=== PATIENT | female | born 1965 | race Caucasian/White ===

== ENCOUNTER 2020-12-28 14:35 | Emergency (ER) | payer OTHER ==
[~2020-12-28] VITALS: Ht 160 cm; Wt 85.0 kg
[2020-12-28 15:08] VITALS: BP 106/70
--- NOTE | 2020-12-28 15:33 | PHYS DOC ---
Past History Past Surgical History: Cholecystectomy, Hysterectomy, Other Additional Past Surgical Histo: knee and back General Adult EDM: Chief Complaint: MECHANICAL FALL HPI: HPI: 55-year-old female presents after mechanical fall. 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 This caused her to fall backwards she landed on her buttocks and then hit the back of her head on concrete. She was not knocked unconscious. She does feel a bit dazed and mildly nauseated. She has not had vomiting. She feels like she is "a little bit out of it". She also has an aching sensation at the top of her buttocks over her sacrum. She doubts that she broke it but it is painful. Patient is not any blood thinners or aspirin. She does not drink alcohol. She has no blood clotting disorders. She denies any other injuries or complaints at this time. Review of Systems: Review of Systems: Constitutional: Denies fever or chills Eyes: Denies change in visual acuity HENT: Denies nasal congestion or sore throat Respiratory: Denies cough or shortness of breath Cardiovascular: Denies chest pain or edema GI: Denies abdominal pain, nausea, vomiting, bloody stools or diarrhea : Denies dysuria Musculoskeletal: Denies back pain or joint pain Integument: Denies rash Neurologic: Denies headache, focal weakness or sensory changes Endocrine: Denies polyuria or polydipsia Lymphatic: Denies swollen glands Psychiatric: Denies depression or anxiety Physical Exam: PE: Constitutional: Well developed, well nourished, no acute distress, non-toxic appearance. [] HENT: Normocephalic, atraumatic, bilateral external ears normal, oropharynx moist, no oral exudates, nose normal. [] Eyes: PERRLA, EOMI, conjunctiva normal, no discharge. [] Neck: Normal range of motion, no tenderness, supple, no stridor. [] Cardiovascular:Heart rate regular rhythm, no murmur [] Lungs & Thorax: Bilateral breath sounds clear to auscultation [] Abdomen: Bowel sounds normal, soft, no tenderness, no masses, no pulsatile masses. [] Skin: Warm, dry, no erythema, no rash. [] Back: No tenderness, no CVA tenderness. [] Extremities: No tenderness, no cyanosis, no clubbing, ROM intact, no edema. [] Neurologic: Alert and oriented X 3, normal motor function, normal sensory function, no focal deficits noted. [] Psychologic: Affect normal, judgement normal, mood normal. [] Current Patient Data: Vital Signs: Vital Signs Date Time Temp Pulse Resp B/P (MAP) Pulse Ox O2 Delivery O2 Flow Rate FiO2 12/28/20 15:08 98.0 80 16 106/70 (82) 99 Room Air EKG: EKG: [] Radiology/Procedures: Radiology/Procedures: [] Impressions: Exam Date: 12/28/2020 3:[address] HEAD/BRAIN WO Indication: Reason: fall from step onto concrete / Spl. Instructions: / History: . TECHNIQUE: Head CT was performed without intravenous contrast. One or more of the following dose reduction techniques were utilized: *Automated exposure control (AEC) *Adjustment of mA and/or kV according to patient size *Use of iterative reconstruction technique *CT scan done according to ALARA, or VINNIE/IMAGE GENTLY FINDINGS: The ventricles and sulci are normal for the patient's stated age. There is no evidence of acute intracranial hemorrhage, extra-axial collection, mass effect, midline shift, or acute territorial infarct. No lesion of the skull base or the calvarium is seen. The visualized paranasal sinuses, mastoid air cells and orbit s are normal in appearance. IMPRESSION: No evidence for acute intracranial abnormality. Electronically signed by: Tolu Reddy MD (12/28/2020 4:12 PM) [facility] DI[facility]ATED AND SIGNED BY: TOLU REDDY MD DATE: 12/28/20 1611 CC: MINNA SMITH DO; NON,STAFF ~MTH0 0 XR SACRUM AND COCCYX 2+VIEWS 12/28/2020 3:49 PM INDICATION: Fall COMPARISON: None available. TECHNIQUE: 3 views of the sacrum and coccyx. FINDINGS/ IMPRESSION: There is no acute fracture or dislocation. Joint spaces are maintained. Bone mineralization is within normal limits. Regional soft tissues are within normal limits. There is no soft tissue gas or osseous erosion. No radiopaque foreign body. Moderate lumbar spondylosis. Electronically signed by: Mechelle Smith MD (12/28/2020 4:13 PM) [facility] DICTATED AND SIGNED BY: MECHELLE SMITH MD DATE: 12/28/20 1612 CC: MINNA SMITH DO; NON,STAFF ~MTH0 0 Heart Score: C/O Chest Pain: N/A Risk Factors: Risk Factors: DM, Current or recent (<one month) smoker, HTN, HLP, family history of CAD, obesity. Risk Scores: Score 0 - 3: 2.5% MACE over next 6 weeks - Discharge Home Score 4 - 6: 20.3% MACE over next 6 weeks - Admit for Clinical Observation Score 7 - 10: 72.7% MACE over next 6 weeks - Early Invasive Strategies Course & Med Decision Making: Course & Med Decision Making Pertinent Labs and Imaging studies reviewed. (See chart for details) The patient's head CT is negative for acute findings. Her sacrum x-ray is negative for acute findings. The patient may have a mild concussion. I have discussed this with her and told her that it would just take time to see how she does. She states verbal understanding. She is stable for discharge at this time. [] Dragon Disclaimer: Dragtayler Disclaimer: This electronic medical record was generated, in whole or in part, using a voice recognition dictation system. Departure Departure: Impression: Primary Impression: Fall from stairs Additional Impression: Concussion Qualified Codes: S06.0X0A - Concussion without loss of consciousness, initial encounter Disposition: HOME / SELF CARE / HOMELESS Condition: STABLE Referrals: NON,STAFF (PCP) Patient Instructions: Concussion and Brain Injury, [id number] MINNA SMITH DO Dec 28, 2020 15:33
[2020-12-28] MEDS ORDERED: ONDANSETRON ODT 4 MG TAB.RAPDIS PO ONE (16:00)
--- NOTE | 2020-12-28 16:14 | RAD ---
Exam Date: 12/28/2020 3:[address] HEAD/BRAIN WO Indication: Reason: fall from step onto concrete / Spl. Instructions: / History: . TECHNIQUE: Head CT was performed without intravenous contrast. One or more of the following dose re duction techniques were utilized: *Automated exposure control (AEC) *Adjustment of mA and/or kV according to patient size *Use of iterative reconstruction technique *CT scan done according to ALARA, or ALARA/IMAGE GENTLY FINDINGS: The ventricles and sulci are normal for the patient's stated age. There is no evidence of acute int racranial hemorrhage, extra-axial collection, mass effect, midline shift, or acute territorial infarc t. No lesion of the skull base or the calvarium is seen. The visualized paranasal sinuses, mastoid ai r cells and orbits are normal in appearance. IMPRESSION: No evidence for acute intracranial abnormality. Electronically signed by: Bar Reddy MD (12/28/2020 4:12 PM) [facility]
--- NOTE | 2020-12-28 16:15 | RAD ---
XR SACRUM AND COCCYX 2+VIEWS 12/28/2020 3:49 PM INDICATION: Fall COMPARISON: None available. TECHNIQUE: 3 views of the sacrum and coccyx. FINDINGS/ IMPRESSION: There is no acute fracture or dislocation. Joint spaces are maintained. Bone mineralization is within normal limits. Regional soft tissues are within normal limits. There is no soft tissue gas or osseou s erosion. No radiopaque foreign body. Moderate lumbar spondylosis. Electronically signed by: Belkys Fierro MD (12/28/2020 4:13 PM) [facility]
== END 2020-12-28 16:38 | disposition home or self-care (01) ==
LOC: ER 14:35
DX: S06.0X0A Concussion without loss of consciousness, initial encounter (principal); W10.8XXA Fall (on) (from) other stairs and steps, initial encounter; Y93.89 Activity, other specified; Y92.89 Other specified places as the place of occurrence of the external cause; Y99.8 Other external cause status
CPT/HCPCS: 70450; 72220; 99284; Q0162